=== PATIENT | male | born 1995 | race African-American/Black ===

== ENCOUNTER 2017-06-14 17:48 | Emergency (ER) | payer SELFPAY ==
--- NOTE | 2017-06-14 18:46 | RAD ---
TWO VIEWS OF THE CHEST: 06/14/17 COMPARISON: 06/27/08 HISTORY: Cough and congestion. FINDINGS: Two views of the chest show normal sized cardiomediastinal silhouette. There is no evidence of consol idation, mass, or pleural effusion. The bones are unremarkable. IMPRESSION: No evidence of acute cardiopulmonary disease. POS: [facility]
[2017-06-14] MEDS ORDERED: predniSONE 20 MG TAB ONE ×2 (18:56→18:58)
== END 2017-06-14 19:20 | disposition home or self-care (01) ==
LOC: ERS 17:48
DX: J45.901 Unspecified asthma with (acute) exacerbation (principal)
CPT/HCPCS: 71046; 94640; J7506; J7620